=== PATIENT | female | born 1965 | race Caucasian/White ===

== ENCOUNTER → 2021-02-16 08:00 | Outpatient (CLI) | payer OTHER | END | disposition home or self-care (01) | LOC: LAB 08:00 → ADM 14:45 → EDSTATUS 02-20 14:45 → AMB-ENDOS 02-20 14:45 | PROVIDERS: ATTEND Colon & Rectal Surgery | DX: K92.1 Melena (principal); K21.9 Gastro-esophageal reflux disease without esophagitis; Z12.11 Encounter for screening for malignant neoplasm of colon; K29.00 Acute gastritis without bleeding; K58.9 Irritable bowel syndrome, unspecified; Z03.818 Encounter for observation for suspected exposure to other biological agents ruled out ==

== ENCOUNTER 2021-04-10 09:34 | Day surgery (SDC) | payer OTHER | END 2021-04-10 16:15 | disposition home or self-care (01) | LOC: AMB-ENDOS 09:34 | PROVIDERS: ATTEND Colon & Rectal Surgery | DX: D13.1 Benign neoplasm of stomach (principal); K44.9 Diaphragmatic hernia without obstruction or gangrene; K64.0 First degree hemorrhoids; Z20.822 Contact with and (suspected) exposure to COVID-19; Z12.11 Encounter for screening for malignant neoplasm of colon ==